=== PATIENT | male | born 1995 | race Caucasian/White ===

== ENCOUNTER 2018-07-03 01:35 | Emergency (ER) | payer SELFPAY ==
[2018-07-03] MEDS ORDERED: ASPIRIN 81 MG TABLET, CHEWABLE PO ONE (02:33)
--- NOTE | 2018-07-03 02:35 | ER Document Report ---
ED Cardiac - General Chief Complaint: Chest Pressure Stated Complaint: CHEST DISCOMFORT Time Seen by Provider: 07/03/18 02:27 Primary Care Provider: ADE MARTINEZ PA [Primary Care Provider] - Follow up as needed Notes: Patient is a 22-year-old male that comes to the emergency department for chief complaint of running out of his atenolol and also for chest pain. He states pain is in the center of his chest, intermittent, he states he has this daily and has had it ever since he did steroids 1 year ago. He denies smoking or recreational drugs, drinks alcohol occasionally, denies any other daily medications. He states his mother had a heart attack in her late 20s with stents. TRAVEL OUTSIDE OF THE [place] IN LAST 30 DAYS: No - Related Data Allergies/Adverse Reactions: No Known Allergies Allergy (Unverified 07/03/18 01:48) Past Medical History - General Information source: Patient - Social History Smoking Status: Never Smoker Drug Abuse: None Lives with: Family Family History: Reviewed & Not Pertinent - Medical History Medical History: Negative Surgical Hx: Negative - Immunizations Immunizations up to date: Yes Hx Diphtheria, Pertussis, Tetanus Vaccination: Yes Review of Systems - Review of Systems Constitutional: No symptoms reported EENT: No symptoms reported Cardiovascular: See HPI Respiratory: No symptoms reported Gastrointestinal: No symptoms reported Genitourinary: No symptoms reported Male Genitourinary: No symptoms reported Musculoskeletal: No symptoms reported Skin: No symptoms reported Hematologic/Lymphatic: No symptoms reported Neurological/Psychological: No symptoms reported Physical Exam - Vital signs Vitals: Temp Pulse Resp BP Pulse Ox 97.7 F 97 16 144/92 H 100 07/03/18 01:45 07/03/18 01:45 07/03/18 01:45 07/03/18 01:45 07/03/18 01:45 - Notes Notes: GENERAL: Alert, interacts well. No acute distress. HEAD: Normocephalic, atraumatic. EYES: Pupils equal, round, and reactive to light. Extraocular movements intact. ENT: Oral mucosa moist, tongue midline. Oropharynx unremarkable. Airway patent. Nares patent, no nasal septal hematoma, TM's intact. NECK: Full range of motion. Supple. Trachea midline. LUNGS: Clear to auscultation bilaterally, no wheezes, rales, or rhonchi. No respiratory distress. HEART: Regular rate and rhythm. No murmur ABDOMEN: Soft, non-tender. Non-distended. Bowel sounds present in all 4 quadrants. GENITOURINARY: Deferred EXTREMITIES: Moves all 4 extremities spontaneously. No edema, normal radial and dorsalis pedis pulses bilaterally. No cyanosis. BACK: no cervical, thoracic, lumbar midline tenderness. No saddle anesthesia, normal distal neurovascular exam. NEUROLOGICAL: Alert and oriented x3. Normal speech. [cranial nerves II through XII grossly intact]. PSYCH: Patient is slightly anxious and talks rapidly but he is still able to hold a normal conversation. SKIN: Warm, dry, normal turgor. No rashes or lesions noted. Course - Re-evaluation Re-evalutation: EKG with no T wave inversions or ST segment changes in consecutive leads. NM interval and QTc unremarkable. Chest x-ray unremarkable. CBC unremarkable, chemistry unremarkable, troponin is negative. This is despite patient stating he is having ongoing symptoms for about a year. I did agree to perform the workup for the patient, however I have very low suspicion of ACS based on his lack of current chest pain, atypical symptoms, and ongoing chronic chest pain reported. He is not tachycardic, hypoxic, or in any distress. I did review the labs, patient states gratefulness, he requests his atenolol. He was provided with this. Patient requesting relief. Discussed follow-up and return precautions. Patient states understanding and agreement. - Vital Signs Vital signs: Temp Pulse Resp BP Pulse Ox 97.5 F 83 14 144/65 H 100 07/03/18 03:48 07/03/18 03:48 07/03/18 03:48 07/03/18 03:48 07/03/18 01:45 - Laboratory Result Diagrams: 07/03/18 02:41 07/03/18 02:41 Laboratory results interpreted by me: 07/03/18 07/03/18 02:41 02:41 WBC 13.6 H Absolute Neutrophils 9.2 H Carbon Dioxide 31 H BUN 22 H Discharge - Discharge Clinical Impression: Chronic chest pain, Has run out of medications Condition: Stable Disposition: HOME, SELF-CARE Additional Instructions: Your workup does not show any concerning findings at this time. Follow-up with your provider for additional management, fill your prescription and take as prescribed. Return for any concerning symptoms including difficulty breathing, passing out, severe worsening pain, fever, or any other concerning symptoms. Prescriptions: Atenolol [Tenormin] 12.5 mg PO BID #60 tablet Referrals: ADE MARTINEZ PA [Primary Care Provider] - Follow up as needed
[2018-07-03 02:49] LABS: ABSOLUTE EOSINOPHILS # (AUTO) 0.1 10^3/uL (0.0-0.6); ABSOLUTE MONOCYTES (AUTO) 1.3 10^3/uL (0.1-1.4); ABSOLUTE NEUT (AUTO) 9.2 10^3/uL (1.7-8.2); BASOPHILS % (AUTO) 0.4 % (0-2); EOSINOPHILS % (AUTO) 0.8 % (0-6); HEMATOCRIT 43.6 % (37.9-51.0); LYMPHOCYTES % (AUTO) 22.1 % (13-45); MEAN CORPUSCULAR HEMOGLOBIN 31.2 pg (27.0-33.4); MEAN CORPUSCULAR HGB CONC 34.4 g/dL (32.0-36.0); MEAN CORPUSCULAR VOLUME 91 fl (80-97); MONOCYTES % (AUTO) 9.2 % (3-13); PLATELET COUNT 345 10^3/uL (150-450); RED CELL DISTRIBUTION WIDTH 12.9 % (11.5-14.0); SEGMENTED NEUTROPHILS % (AUTO) 67.5 % (42-78); TOTAL CELLS COUNTED % (AUTO) 100 %; WHITE BLOOD COUNT 13.6 10^3/uL (4.0-10.5)
[2018-07-03 03:08] LABS: ANION GAP 11 (5-19); BLOOD UREA NITROGEN 22 mg/dL (7-20); CALCIUM 9.4 mg/dL (8.4-10.2); CARBON DIOXIDE 31 mmol/L (22-30); CHLORIDE 101 mmol/L (98-107); GLUCOSE 97 mg/dL (75-110); POTASSIUM 4.2 mmol/L (3.6-5.0); SODIUM 142.8 mmol/L (137-145)
--- NOTE | 2018-07-03 03:12 | RADIOLOGY REPORT (SQ) ---
EXAM DESCRIPTION: XR CHEST 1 VIEW COMPLETED DATE/TME: 07/03/2018 02:33 CLINICAL HISTORY: 22 years, Male, chest pain Comparison: None FINDINGS: No focal lung consolidation. No pleural effusion. No pneumothorax. Cardiac and mediastinal silhouette is unremarkable. No acute osseous abnormality. Soft tissues are unremarkable. IMPRESSION: No acute findings. No focal lung consolidation.
[2018-07-03] MEDS ORDERED: ATENOLOL 50 MG TABLET PO ONE (03:43)
[2018-07-03 03:50] VITALS: BP 144/65
--- NOTE | 2018-07-03 22:21 | EKG REPORT ---
SEVERITY:- ABNORMAL ECG - SINUS RHYTHM INCOMPLETE RIGHT BUNDLE BRANCH BLOCK INFERIOR Q WAVES, PROBABLY NORMAL VARIATION : Confirmed by: Saumya Cross 03-Jul-2018 22:21:10
== END 2018-07-03 03:53 | disposition home or self-care (01) ==
LOC: ER 01:35
DX: R07.9 Chest pain, unspecified (principal); G89.29 Other chronic pain
CPT/HCPCS: 36415; 71045; 80048; 84484; 85025; 93005; 93010; 99285